=== PATIENT | female | born 1995 | race Caucasian/White ===

== ENCOUNTER 2017-04-26 13:14 | Emergency (ER) | payer OTHER ==
--- NOTE | 2017-04-26 15:28 | RAD ---
HISTORY: Fall, left-sided pain COMPARISONS: None VIEWS: 1, Single frontal view of the pelvis FINDINGS: BONE DENSITY: Normal. BONES: There is no displaced fracture. JOINTS: There is no arthropathy. ALIGNMENT: There is no dislocation. SOFT TISSUES: Unremarkable. OTHER FINDINGS: An IUD is noted IMPRESSION: NO ACUTE OSSEOUS INJURY. IF SYMPTOMS PERSIST, RECOMMEND REPEAT IMAGING.
--- NOTE | 2017-04-26 15:29 | RAD ---
Indication: Left femur pain. 2 views of left femur demonstrates no fracture. No other bone or joint abnormality is noted. IMPRESSION: No fracture of the left femur is noted.
--- NOTE | 2017-04-26 15:49 | ED ---
Lower Extremity - HPI Summary HPI Summary: Patient here with left hip and leg pain status post fall on stairs over the weekend. Reports she was walking down the steps after they just been cleaned and slipped and fell. Landed on her left hip. Has a very small bruise and has had tenderness to palpation in the area along with discomfort with weight bearing. She denies numbness, tingling or weakness both lower extremity. No change in bowel or bladder habits. She's been eating and drinking well without pain or discomfort in her abdomen. She is able to sit, stand and ambulate without restriction. Reports she feels/ears clicking or moving in her hip with abduction - this movement does not trigger numbness tingling or weakness into her extremities. She denies any other injuries as a result of this fall including but not limited to head injury, loss of consciousness, neck pain, back pain, upper extremity pain, rib pain. - History of Current Complaint Chief Complaint: EDExtremityLower Stated Complaint: FALL, LEFT FOOT PAIN Time Seen by Provider: 04/26/17 14:01 Hx Obtained From: Patient Pain Intensity: 6 - Allergies/Home Medications Allergies/Adverse Reactions: Allergies Allergy/AdvReac Type Severity Reaction Status Date / Time No Known Allergies Allergy Verified 04/26/17 13:28 PMH/Surg Hx/FS Hx/Imm Hx Previously Healthy: Yes Endocrine/Hematology History: Denies: Hx Anticoagulant Therapy, Hx Blood Disorders Musculoskeletal History: Denies: Hx Arthritis, Hx Rheumatoid Arthritis, Hx Back Problems, Hx Orthopedic Injury, Hx Osteoporosis, Hx of Fracture(s), Hx Joint Replacement - Immunization History Immunizations Up to Date: Yes Infectious Disease History: No Infectious Disease History: Denies: Traveled Outside the [place] in Last 30 Days - Family History Known Family History: Positive: None - Social History Occupation: Student Alcohol Use: Weekly Hx Substance Use: No Substance Use Type: Reports: None Hx Tobacco Use: No Smoking Status (MU): Never Smoked Tobacco Review of Systems Constitutional: Negative Negative: Fatigue Eyes: Negative Negative: Photophobia, Blurred Vision, Diplopia Cardiovascular: Negative Negative: Chest Pain Respiratory: Negative Negative: Shortness Of Breath Gastrointestinal: Negative Negative: Abdominal Pain, Vomiting, Diarrhea, Nausea Genitourinary: Negative Positive: Arthralgia, Myalgia. Negative: Decreased ROM, Edema Positive: Bruising Neurological: Negative Psychological: Normal All Other Systems Reviewed And Are Negative: Yes Physical Exam Triage Information Reviewed: Yes Vital Signs On Initial Exam: Initial Vitals Temp Pulse Resp BP Pulse Ox 97.9 F 60 16 137/72 99 04/26/17 13:15 04/26/17 13:15 04/26/17 13:15 04/26/17 13:15 04/26/17 13:15 Vital Signs Reviewed: Yes Appearance: Positive: Well-Appearing, No Pain Distress, Well-Nourished Skin: Positive: Warm, Skin Color Reflects Adequate Perfusion - Quarter size area of ecchymosis over left greater trochantertender to palpationno signs or symptoms of hematoma in the area; no skin breakdown, Dry Head/Face: Positive: Normal Head/Face Inspection Eyes: Positive: Normal, EOMI, [place] ENT: Positive: Hearing grossly normal, Pharynx normal Neck: Positive: Supple, Nontender - Full range of motion cervical spine without hesitation or restriction Respiratory/Lung Sounds: Positive: Breath Sounds Present Cardiovascular: Positive: Pulses are Symmetrical in both Upper and Lower Extremities. Negative: Leg Edema Left, Leg Edema Right Abdomen Description: Positive: Nontender, Soft Musculoskeletal: Positive: Strength/ROM Intact, Pain @ - Left greater trochanter tenderness to palpation; patient has full range of motion with flexion extension and abduction and abduction - strength is 5 out of 5 and equal bilaterally; no crepitus or clicking palpated over joints during range of motion exercises; patient is able to bear weight on hip without weakness although she reports some discomfort Neurological: Positive: Normal, Sensory/Motor Intact, Alert, Oriented to Person Place, Time, CN Intact II-III Psychiatric: Positive: Normal Diagnostics - Vital Signs Vital Signs Temp Pulse Resp BP Pulse Ox 04/26/17 13:15 97.9 F 60 16 137/72 99 - Laboratory Lab Statement: Any lab studies that have been ordered have been reviewed, and results considered in the medical decision making process. Lower Extremity Course/Dx - Course Course Of Treatment: Patient's pelvic and femur x-rays reveal no acute findings per radiology report. Reviewed case with Dr. Bliss who agrees this is most likely an injury with tissue swelling/possible first degree strain but does not require CT scan at this time is patient is able to ambulate, pain is not intolerable and x-rays are negative today. Injury occurred 4 days ago without skin changes that may also indicate more severe internal injury or derangement. Advised supportive care and follow-up with PCP in the next 1-2 weeks. If symptoms persist, she may benefit from an orthopedic consult. If danger signs or symptoms present, return to the emergency department. - Diagnoses Provider Diagnoses: Contusion of left hip, Fall on stairs Discharge - Discharge Plan Condition: Stable Disposition: HOME Patient Education Materials: Hip Contusion (ED), Hip Sprain (ED), Fall Prevention (ED) Forms: *Physical Education Release Referrals: [facility] [Primary Care Provider] - Additional Instructions: Rest, ice, and try ibuprofen alternating with acetaminophen as needed for pain. You may also try topical analgesic such as Biofreeze, BenGay, etc. Do not lie directly on left hip to reduce risk of pain. Wear supportive foot wear to avoid adjusting biomechanics of your back and hips. Avoid ambulating on uneven surfaces, walking on deep or tall steps, deep squatting or bending until symptoms resolve. You may follow-up with your PCP or [facility] in the next 1-2 weeks if symptoms persist. If worse you may benefit from an orthopedic consult. *If you develop changes in bowel or bladder habits, inability to bear weight due to pain or weakness, numbness or tingling down your leg, return to the emergency department.
[2017-04-26 16:07] VITALS: BP 118/71
== END 2017-04-26 16:06 | disposition home or self-care (01) ==
LOC: ED 13:14
DX: S70.02XA Contusion of left hip, initial encounter (principal); M79.672 Pain in left foot; W10.9XXA Fall (on) (from) unspecified stairs and steps, initial encounter; Y92.9 Unspecified place or not applicable
CPT/HCPCS: 72170; 99281